=== PATIENT | female | born 1980 | race Caucasian/White ===

== ENCOUNTER 2016-12-16 00:15 | Emergency (ER) | payer BC ==
[2016-12-16 00:30] VITALS: BP 135/91
[2016-12-16] MEDS ORDERED: CEPHALEXIN MONOHYDRATE 250 MG CAPSULE PO ONE (00:50)
--- NOTE | 2016-12-16 00:51 | ERNOTE ---
Back Pain ER HPI Presenting Symptoms: other - red sore area at top of jovan cleft Time Seen by Provider: 12/16/16 00:37 Source: patient Exam Limitations: no limitations Immunizations: IMMUNIZATION HX Immunizations Up to Date Yes History of Influenza Vaccine Yes Allergies/Adverse Reactions: Allergies Sulfa (Sulfonamide Antibiotics) Allergy (Verified 12/16/16 00:53) Home Medications: HOME MEDICATIONS Cephalexin [Keflex] 500 mg PO QID #40 capsule 12/16/16 [Last Taken Unknown] Narrative: 2 days ago pt began having soreness at the superior cleft. Has gotten more sore and even huts when she lays down on her back. Timing: Reports: constant, getting worse Quality/Severity: Reports: moderate, aching Recent Injury?: Reports: no Possible Precipitating Factor: Reports: none Modifying Factors - (Worsens): Reports: supine position Review of Systems - Review of Systems Constitutional: Absent: recent illness, fever EYE: Present: no symptoms reported ENT: Present: no symptoms reported Respiratory: Present: no symptoms reported Cardiology: Present: no symptoms reported Gastrointestinal/Abdominal: Present: no symptoms reported Genitourinary: Present: no symptoms reported Musculoskeletal: Present: no symptoms reported Skin: Present: See HPI, rash, lumps, change in color Neurological: Present: no symptoms reported Endocrine: Present: no symptoms reported Hematologic/Lymphatic: Present: no symptoms reported Psych: Present: no symptoms reported - Patient's Past Medical History Patient History - Medical: Diabetes Type 2 Patient History - Cardiac/Respiratory: No pertinent hx Patient History - Cancer: No Hx of Cancer Patient History - Surgical Procedures: Tubal Ligation, T & A Patient History - Other: None LMP (females 10-50): now - Social History Living Situations: spouse Abuse History: No History of abuse Psych History: No pertinent hx Smoking Status: Current every day smoker Have you smoked in the past 12 months: Yes Do you dip or chew tobacco: No Alcohol Use: none Drug Use: none - Immunizations Immunizations Up to Date: Yes History of Influenza Vaccine: Yes Physical Exam - Physical Exam General Appearance: Present: wd/wn, alert, no apparent distress Ears, Nose, Throat: Present: normal ENT inspection Neck: Present: normal inspection Respiratory: Present: no respiratory distress, no accessory muscle use Back Exam: Present: normal inspection, normal range of motion Skin Exam: Present: other - erythema and mild induration at the top of the jovan cleft approx 3cm in sup/inf measurement. Includes both sides of buttocks with small pustule in the middle Lymphatic Exam: Present: no adenopathy ED Progress - Vital Signs Vital Signs: Vital Signs 12/16/16 00:15 Temperature 36.8 C Pulse Rate 106 H Respiratory 20 Rate Blood Pressure 135/91 O2 Sat by Pulse 96 Oximetry - Progress/Reassessment Chief Complaint: Back Pain Departure Clinical Impression: Cellulitis and abscess of buttock - Departure Disposition: Home Follow Up Needed Condition: Good Instructions: Cellulitis, Adult, [id number] Additional Instructions: Warm packs to the affected area 10-15 minutes at a time up to every hour. keep area clean with mild soap and water twice a day. Avoid pressure on the area when you are sitting or lying down. Follow up with your regular doctor if not improving in 3-5 days Prescriptions: Cephalexin [Keflex] 500 mg PO QID #40 capsule
[2016-12-16] MEDS ORDERED: CEPHALEXIN MONOHYDRATE 250 MG CAPSULE ONE (00:52)
== END 2016-12-16 01:32 | disposition home or self-care (01) ==
LOC: ER 00:15
DX: L03.317 Cellulitis of buttock (principal); L02.31 Cutaneous abscess of buttock; F17.210 Nicotine dependence, cigarettes, uncomplicated

== ENCOUNTER 2016-12-19 14:24 | Emergency (ER) | payer BC ==
[2016-12-19 14:31] VITALS: BP 146/94
[2016-12-19] MEDS ORDERED: ONDANSETRON 4 MG TAB.RAPDIS PO ONE (14:48)
[2016-12-19] MEDS ORDERED: ONDANSETRON 4 MG TAB.RAPDIS ONE (14:49)
--- NOTE | 2016-12-19 14:52 | ERNOTE ---
Medical Problem HPI - Narrative Date of Service: 12/19/16 - General Chief Complaint: Nausea/Vomiting Time Seen by Provider: 12/19/16 14:37 Source: patient, family Exam Limitations: no limitations - Immun/Allergies/Home Medications Immunizations: IMMUNIZATION HX Immunizations Up to Date Yes History of Influenza Vaccine Yes Allergies/Adverse Reactions: Allergies Sulfa (Sulfonamide Antibiotics) Allergy (Verified 12/19/16 14:31) cephalexin monohydrate [From Keflex] Adverse Reaction (Mild, Verified 12/19/16 14:55) Nausea Home Medications: HOME MEDICATIONS Clindamycin HCl [Cleocin] 150 mg PO QID #60 capsule 12/19/16 [Last Taken Unknown ] Mupirocin [Bactroban] 1 appl TP QID #22 gm 12/19/16 [Last Taken Unknown] Ondansetron [Zofran Odt] 8 mg PO QID #60 tab.rapdis 12/19/16 [Last Taken Unknown ] - History of Present History Narrative: Was seen in the [facility] ER recently for an infection at then top of her medial left buttock. Keflex was prescribed. After the second dose, she became nauseated. She continued the medication. No vomiting. The area is just as painful, but it has now opened up and is draining. She has an appt with her usual doctor in 4 days for followup. Timing: constant Severity: moderate Modifying Factors - (Improves): Present: other - nothing Modifying Factors - (Worsens): Present: other - touching or pressure on the area Review of Systems - Review of Systems Constitutional: Present: no symptoms reported EYE: Present: no symptoms reported ENT: Present: no symptoms reported Respiratory: Present: no symptoms reported Cardiology: Present: no symptoms reported Gastrointestinal/Abdominal: Present: See HPI Genitourinary: Present: no symptoms reported Musculoskeletal: Present: See HPI Skin: Present: See HPI Neurological: Present: no symptoms reported Endocrine: Present: no symptoms reported Hematologic/Lymphatic: Present: no symptoms reported Psych: Present: no symptoms reported All Other Systems: All systems neg except as marked - Patient's Past Medical History Patient History - Medical: Diabetes Type 2 Patient History - Cardiac/Respiratory: No pertinent hx Patient History - Cancer: No Hx of Cancer Patient History - Surgical Procedures: Tubal Ligation, T & A Patient History - Other: None - Social History Living Situations: spouse Abuse History: No History of abuse Psych History: No pertinent hx Smoking Status: Current every day smoker Have you smoked in the past 12 months: Yes Do you dip or chew tobacco: No Alcohol Use: none Drug Use: none - Immunizations Immunizations Up to Date: Yes History of Influenza Vaccine: Yes Physical Exam - Physical Exam General Appearance: Present: wd/wn, alert, no apparent distress Eye Exam: Normal inspection: bilateral, PERRL: bilateral, EOMI: bilateral Ears, Nose, Throat: Present: normal ENT inspection, hearing grossly normal Neck: Present: normal inspection Respiratory: Present: no respiratory distress Cardiovascular/Chest: Present: regular rate, rhythm Gastrointestinal/Abdominal: Present: normal bowel sounds, nontender, nondistended, soft, no organomegaly Back Exam: Present: normal inspection, no CVA tenderness, no vertebral tenderness Extremity Exam: Present: normal inspection, no edema Neurological Exam: Present: alert, oriented, normal mood/affect Skin Exam: Present: other - small indurated area, tender, slightly red, superior medial left buttock ED Progress - Vital Signs Patient's Vital Signs:: I have reviewed the patient's vital signs. Vital Signs: Vital Signs 12/19/16 14:28 Temperature 36.4 C Pulse Rate 113 H Respiratory 14 Rate Blood Pressure 146/94 O2 Sat by Pulse 97 Oximetry - Progress/Reassessment Chief Complaint: Nausea/Vomiting Departure - Departure Clinical Impression: Cellulitis and abscess of buttock Disposition: Home self-care Condition: Good Instructions: Abscess, [id number], Cellulitis, Adult, [id number] Additional Instructions: Soak in hot clear water for 20 minutes four times daily. Apply the antibiotic ointment after each soak. Followup with your doctor in 4 days. Prescriptions: Clindamycin HCl [Cleocin] 150 mg PO QID #60 capsule Mupirocin [Bactroban] 1 appl TP QID #22 gm Ondansetron [Zofran Odt] 8 mg PO QID #60 tabjeannette
== END 2016-12-19 15:07 | disposition home or self-care (01) ==
LOC: ER 14:24
DX: L03.317 Cellulitis of buttock (principal); L02.31 Cutaneous abscess of buttock; Z72.0 Tobacco use